=== PATIENT | male | born 2000 | race Caucasian/White ===

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

== ENCOUNTER 2023-01-08 20:11 | Emergency (ER) | payer OTHER ==
[2023-01-08 21:15] LABS: Appearance,Urine Clear (Clear); Bilirubin,Urine Negative (Negative); Blood,Urine Negative (Negative); Color,Urine Yellow; Glucose,Urine (UA) Negative (Negative); Ketones,Urine Negative (Negative); Leukocyte Esterase,Urine Negative (Negative); Nitrite,Urine Negative (Negative); PH, Urine 5.5 (5.0-8.0); Protein,Urine Trace (Negative); Specific Gravity,Urine 1.028 (1.001-1.035); Urobilinogen,Urine <2.0 mg/dL (<2.0)
[2023-01-08] MEDS ORDERED: MUPIROCIN 2% OINT 22 GM TUBE TOPICAL SCH (22:00)
--- NOTE | 2023-01-08 22:04 | ED ---
General Adult HPI - General Chief complaint: Skin/Abscess/Foreign Body Stated complaint: rash Time Seen by Provider: 01/08/23 20:16 Source: patient, RN notes reviewed Mode of arrival: ambulatory Limitations: no limitations - History of Present Illness Initial comments: 22-year-old female with no significant past medical history presents the emergency department the chief complaint of groin problem. Patient reports that he has had increased itchiness to his foot pain for the last 2 years. He reports no new worsening symptoms. He reports that he was embarrassed to be evaluated. Denies any recent sexual contact. Denies any new lotions, detergents, soaps. Patient has been trying to use [id number] lotions and antifungals without symptomatic relief. He denies any fevers, purulent discharge, bleeding, dysuria, hematuria - Related Data Home Medications Medication Instructions Recorded Confirmed Albuterol Inhaler [Ventolin 1 - 2 puff INHALATION Q6HR PRN 03/18/15 03/18/15 Inhaler] Albuterol Nebulized (Conc) 2.5 mg INHALATION Q6H 03/18/15 03/18/15 [Ventolin Nebulized (Conc)] Fluticasone Nasal [place] [Flonase 1 spray EA NOSTRIL HS 03/18/15 03/18/15 Nasal [place]] Methylphenidate HCl [Concerta] 27 mg PO DAILY 03/18/15 03/18/15 diphenhydrAMINE [Benadryl] 25 mg PO HS PRN 03/18/15 03/18/15 Previous Rx's Medication Instructions Recorded Albuterol Nebulized [Ventolin 2.5 mg INHALATION QID PRN #125 nebu 03/18/15 Nebulized] predniSONE 3 tab-cap PO DAILY #12 tab 03/18/15 Ondansetron Odt [Zofran Odt] 4 mg PO Q8HR PRN #10 tab 06/14/22 Allergies Allergy/AdvReac Type Severity Reaction Status Date / Time banana Allergy Swelling Verified 01/08/23 20:26 Melon Allergy Swelling Verified 01/08/23 20:26 watermelon Allergy Swelling Verified 01/08/23 20:26 Review of Systems ROS Statement: Those systems with pertinent positive or pertinent negative responses have been documented in the HPI. ROS Other: All systems not noted in ROS Statement are negative. Past Medical History Additional Past Medical History / Comment(s): asthma History of Any Multi-Drug Resistant Organisms: None Reported Past Surgical History: Adenoidectomy, Tonsillectomy Past Psychological History: Anxiety Smoking Status: Vaper Past Alcohol Use History: Rare Past Drug Use History: Marijuana General Exam - General Exam Comments Initial Comments: General: Alert, in no acute distress Head: atraumatic normocephalic. Eyes PERRL, EOMI intact, mucous membranes moist Respiratory: Lungs clear to auscultation bilaterally Cardiovascular: Heart rate regular rate and rhythm Abdominal: Soft without guarding or rebound Extremities: Normal inspection with full range of motion and normal capillary refill, . Neuroogic: alert and oriented 3, CN II-XII intact, able to ambulate with steady gait Skin: warm dry and intact with normal color.small pustules in the inner groin bilaterally consistent with folliculitis, scrotum without market redness, edema, erythema. No tenderness to palpation exam performed with SONYA Trevizo present at the bedside Limitations: no limitations Course Vital Signs 01/08/23 01/08/23 20:23 22:22 Temperature 97.2 F L 97.8 F Pulse Rate 83 63 Respiratory 16 18 Rate Blood Pressure 117/71 111/73 O2 Sat by Pulse 96 97 Oximetry Medical Decision Making - Medical Decision Making Was pt. sent in by a medical professional or institution (CLARA Gutierrez, ADDICTIONS COUNSELOR, urgent care, hospital, or [facility]...) When possible be specific @ -[No] Did you speak to anyone other than the patient for history (EMS, parent, family, police, friend...)? What history was obtained from this source @ -[No] Did you review nursing and triage notes (agree or disagree)? Why? @ -[I reviewed and agree with nursing and triage notes] Were old charts reviewed (outside hosp., previous admission, EMS record, old EKG, old radiological studies, urgent care reports/EKG's, [facility] records)? Report findings @ -[No old charts were reviewed] Differential Diagnosis (chest pain, altered mental status, abdominal pain women, abdominal pain men, vaginal bleeding, weakness, fever, dyspnea, syncope, headache, dizziness, GI bleed, back pain, seizure, CVA, palpatations, mental health, musculoskeletal)? @ -[not applicable] EKG interpreted by me (3pts min.). @ -[As above] X-rays interpreted by me (1pt min.). @ -[None done] CT interpreted by me (1pt min.). @ -[None done] U/S interpreted by me (1pt. min.). @ -[None done] What testing was considered but not performed or refused? (CT, X-rays, U/S, labs)? Why? @ -[None] What meds were considered but not given or refused? Why? @ -[None] Did you discuss the management of the patient with other professionals (professionals i.e. , PA, ADDICTIONS COUNSELOR, lab, RT, psych nurse, social media marketing analyst, manufacturing software engineer, teacher, financial aids officer, caser in)? Give summary @ -[No] Was smoking cessation discussed for >3mins.? @ -[No] Was critical care preformed (if so, how long)? @ -[No] Were there social determinants of health that impacted care today? How? (Homelessness, low income, unemployed, alcoholism, drug addiction, transportation, low edu. Level, literacy, decrease access to med. care, assisted, rehab)? @ -[No] Was there de-escalation of care discussed even if they declined (Discuss DNR or withdrawal of care, Hospice)? DNR status @ -[No] What co-morbidities impacted this encounter? (DM, HTN, Smoking, COPD, CAD, Cancer, CVA, ARF, Chemo, Hep., AIDS, mental health diagnosis, sleep apnea, morbid obesity)? @ -[None] Was patient admitted / discharged? Hospital course, mention meds given and route, prescriptions, significant lab abnormalities, going to OR and other pertinent info. @ -Discharged. This is a pleasant 22 -year-old male with ongoing rash. Patient had a thorough history and physical exam performed. Small pustules located in the inner groin/thigh area consistent with folliculitis. No evidence of erythema, edema. Patient instructed to discontinue other [id number] treatments. He is provided Bactroban. Recommend close follow- up with dermatology in 3-5 days. Avoid Lotions, detergents, soaps. Return to the nearest emergency department if fever, increased redness, edema develop. Case discussed with Dr. Daren KAN who agrees with POC. Undiagnosed new problem with uncertain prognosis? @ -[No] Drug Therapy requiring intensive monitoring for toxicity (Heparin, Nitro, Insulin, Cardizem)? @ -[No] Were any procedures done? @ -[No] Diagnosis/symptom? @ -Irritation of Groin vs. Folliculitis Acute, or Chronic, or Acute on Chronic? @ -Acute on chronic Uncomplicated (without systemic symptoms) or Complicated (systemic symptoms)? @ -Uncomplicated Side effects of treatment? @ -[No] Exacerbation, Progression, or Severe Exacerbation? @ -[No] Poses a threat to life or bodily function? How? (Chest pain, [place], [place], pneumonia, PE, COPD, DKA, ARF, appy, cholecystitis, CVA, Diverticulitis, Homicidal, Suicidal, threat to staff... and all critical care pts) @ -Low likelihood - Lab Data Lab Results 01/08/23 Range/Units 20:50 Urine Color Yellow Urine Appearance Clear (Clear) Urine pH 5.5 (5.0-8.0) Ur Specific [place] 1.028 (1.001-1.035) Urine Protein Trace H (Negative) Urine Glucose (UA) Negative (Negative) Urine Ketones Negative (Negative) Urine Blood Negative (Negative) Urine Nitrite Negative (Negative) Urine Bilirubin Negative (Negative) Urine Urobilinogen <2.0 (<2.0) mg/dL Ur Leukocyte Esterase Negative (Negative) Disposition Clinical Impression: Contact dermatitis, Folliculitis Disposition: HOME SELF-CARE Condition: Stable Additional Instructions: Please stop using antifungals and other creams at home Please apply Bactroban to the affected area Keep the area clean and dry. Is patient prescribed a controlled substance at d/c from ED?: No Referrals: Petar Hernandez MD [Primary Care Provider] - 1-2 days Jaydon Bailey MD [STAFF PHYSICIAN] - 1-2 days Time of Disposition: 22:04
[2023-01-08 22:26] VITALS: BP 111/73; PULSE 63; RESP 18; TEMP 97.8
== END 2023-01-08 22:27 | disposition home or self-care (01) ==
LOC: EC 20:11
DX: L25.9 Unspecified contact dermatitis, unspecified cause (principal); L73.9 Follicular disorder, unspecified; J45.909 Unspecified asthma, uncomplicated; F17.290 Nicotine dependence, other tobacco product, uncomplicated; F12.90 Cannabis use, unspecified, uncomplicated; Z79.51 Long term (current) use of inhaled steroids; Z79.899 Other long term (current) drug therapy; Z91.018 Allergy to other foods
CPT/HCPCS: 81003; 99283

== ENCOUNTER → 2023-03-23 | Outpatient (CLI) | payer OTHER | END | disposition home or self-care (01) | LOC: LABWHC1 16:03 | PROVIDERS: ATTEND Family Medicine | DX: E83.52 Hypercalcemia (principal) | CPT/HCPCS: 36415; 82330; 83970 ==